=== PATIENT | female | born 1960 | race African-American/Black ===

== ENCOUNTER 2016-06-22 05:30 | Day surgery (SDC) | payer OTHER ==
[2016-06-22] MEDS ORDERED: NS 1,000 ML ONE (05:55)
[2016-06-22] MEDS ORDERED: DIPRIVAN 1% 50 ML ONE (07:25)
[2016-06-22] MEDS ORDERED: FENTANYL ONE (07:31)
[2016-06-22] MEDS ORDERED: MYLICON DROPS (DOSE) MISC ONE (08:11)
[2016-06-22] MEDS ORDERED: VERSED ONE (08:48)
[2016-06-22 09:17] VITALS: BP 128/79
[2016-06-22] MEDS ORDERED: ROBINUL ONE (09:26)
[2016-06-22] MEDS ORDERED: XYLOCAINE-MPF 2% ONE (09:26)
--- NOTE | 2016-06-22 13:19 | OPERATIVE NOTE ---
PROCEDURE DATE: 06/22/2016 REFERRING PHYSICIAN: Christian Parish MD INDICATION FOR PROCEDURE: 1. Nausea. 2. Abdominal pain. 3. History of H. pylori gastritis. 4. Iron deficiency anemia. 5. Unplanned weight loss. PROCEDURE PERFORMED: Esophagogastroduodenoscopy with biopsy. CONSENT: Informed consent was obtained from the patient prior to the procedure. The risks, benefits, and alternatives were discussed with the patient and her mother. MEDICATIONS: The patient received monitored anesthesia care. COMPLICATIONS: None. ESTIMATED BLOOD LOSS: Less than 1 mL. SPECIMENS REMOVED: 1. Duodenal biopsy. 2. Gastric biopsy. FINDINGS: After sedation was achieved, the upper endoscope was inserted to the 2nd portion of the duodenum. The hypopharynx appeared normal. The tubular esophagus was normal to the GE junction. There was a rim of erythema at the GE junction consistent with grade A erosive esophagitis. The GE junction was measured at 40 cm from the incisors. In the gastric lumen, there were surgical changes consistent with a sleeve gastrectomy. There was bile reflux visible during insertion of the scope to the mid to lower esophagus. In the gastric lumen, there was erosive gastritis and a few sessile polyps. There were no masses or ulcers noted. The pylorus appeared normal. In the duodenal bulb, there was mild duodenitis. The second and third portion appeared grossly normal. Biopsies were taken from the duodenum and from the gastric mucosa. The lumen was then decompressed and the scope was removed without incident. IMPRESSION: 1. Grade A erosive esophagitis. 2. Active reflux. 3. Surgical changes consistent with sleeve gastrectomy. 4. Erosive gastritis. 5. Mild duodenitis. RECOMMENDATION: 1. Await biopsy results. 2. Continue Protonix 40 mg daily. 3. Add Carafate 1 g 4 times per day. 4. Proceed with a colonoscopy as previously scheduled. 5. We will have the patient return to clinic in 12 weeks to assess interval progress.
--- NOTE | 2016-06-22 13:22 | OPERATIVE NOTE ---
PROCEDURE DATE: 06/22/2016 REFERRING PHYSICIAN: Ge Parish MD INDICATION FOR PROCEDURE: 1. Abdominal pain. 2. Worsening constipation. 3. History of colon polyps. 4. Unplanned weight loss. 5. Iron-deficiency anemia. PROCEDURE PERFORMED: Colonoscopy with polypectomy. CONSENT: Informed consent was obtained from the patient prior to the procedure. The risks, benefits, and alternatives were discussed with the patient and her mother. MEDICATIONS: The patient received monitored anesthesia care. COMPLICATIONS: None. ESTIMATED BLOOD LOSS: Less than 1 mL. SPECIMENS REMOVED: Transverse colon polyp. FINDINGS: After the EGD was performed, the patient was repositioned. The pediatric colonoscope was inserted to the terminal ileum. The terminal ileum, ileocecal valve, and appendiceal orifice appeared endoscopically normal. The ascending colon was endoscopically normal. In the transverse colon, at the hepatic flexure, there was a 4-5 mm sessile polyp that was removed by snare cautery. Upon further withdrawal, the remaining transverse colon, descending, and sigmoid colon appeared endoscopically normal. In the rectum, there were grade 1 internal hemorrhoids. On retroflexed view, there were a few scattered rectal AVMs. There were small external hemorrhoids with no stigmata of bleeding. After the exam was complete, the lumen was decompressed and the scope was removed without incident. IMPRESSION: 1. Hepatic flexure polyp. 2. Nonbleeding arteriovenous malformations. 3. Grade 1 internal hemorrhoids. 4. Small external hemorrhoids. RECOMMENDATION: 1. Await biopsy results. 2. The patient was placed on Bentyl 10 mg 4 times a day in clinic with interval improvement in her abdominal pain and constipation. Please continue Bentyl. Continue efforts to increase the fiber in the diet. 3. Repeat colonoscopy in 5 years. 4. We will have the patient return to clinic in 12 weeks for interval reassessment.
== END 2016-06-22 09:21 | disposition home or self-care (01) ==
LOC: ENDO 05:30
PROVIDERS: ATTEND Internal Medicine Gastroenterology
DX: K29.50 Unspecified chronic gastritis without bleeding (principal); D12.3 Benign neoplasm of transverse colon; K59.00 Constipation, unspecified; R63.4 Abnormal weight loss; D50.9 Iron deficiency anemia, unspecified; K21.9 Gastro-esophageal reflux disease without esophagitis; K29.80 Duodenitis without bleeding; Z98.84 Bariatric surgery status
CPT/HCPCS: 88305; 88312; J2250; J3010; J7030